=== PATIENT | female | born 1995 | race Two or more races ===

== ENCOUNTER 2023-03-20 01:19 | Inpatient (IN) | payer OTHER ==
[~2023-03-20] VITALS: Ht 149.9 cm; Wt 56.7 kg
[2023-03-20] MEDS ORDERED: PRENATAL CAPLE1 EAC1 PO (01:56)
[2023-03-20] MEDS ORDERED: IRON325 MG PO (01:57)
[2023-03-22] MEDS ORDERED: INTEGRA PLUS C1 EACH PO (14:15)
== END 2023-03-22 14:41 | disposition home or self-care (01) | DRG 805 ==
LOC: LDR 01:19 → OB/GYN 08:41
PROVIDERS: Internal Medicine Cardiovascular Disease; ADMIT Obstetrics & Gynecology; ATTEND Obstetrics & Gynecology
PROC: 10E0XZZ Delivery of Products of Conception, External Approach (ICD-10-PCS; principal; 2023-03-20)
PROC: 0KQM0ZZ Repair Perineum Muscle, Open Approach (ICD-10-PCS; 2023-03-20)
PROC: 4A1HXCZ Monitoring of Products of Conception, Cardiac Rate, External Approach (ICD-10-PCS; 2023-03-20)
DX: O70.1 Second degree perineal laceration during delivery (principal); O60.14X0 Preterm labor third trimester with preterm delivery third trimester, not applicable or unspecified; Z37.0 Single live birth; Z3A.35 35 weeks gestation of pregnancy; Z20.822 Contact with and (suspected) exposure to COVID-19